=== PATIENT | male | born 1950 | race Caucasian/White ===

== ENCOUNTER 2017-07-09 10:41 | Emergency (ER) | payer MEDICARE, BC ==
[~2017-07-09] VITALS: Ht 182.9 cm; Wt 96.5 kg
[~2017-07-09 10:41] MED LIST: ACCU CHEK AVIVA XX; ALEVE220 M1 PO; AMLOD/BENAZP1 CA5 PO; ASPIRIN LOW DOS81 M1 PO; ASPIRIN LOW DOS81 M2 PO; AUGMENTIN875TAB PO; AVELOX400 MG PO; BABY ASPIRIN81 MG OR; BAYER ASA325 MG PO; CARDURA1 MG; CARDURA1 MG PO; CARVEDILOL3.125 MG PO; CIPRO XR500 M2 PO; CIPRO XR500 MG PO; COREG3.125 MG PO; DIAZEPAM10 MG PO; DILAUDID 2MG2 MG/TA1 PO; DOXAZOSIN1 M1 OR; DOXAZOSIN2 M1 PO; FLOMAX0.4 M1 PO; GLIPIZIDE ER10 M1; GLIPIZIDE10 M1 PO; GLIPIZIDE10 M2 PO; JANUVIA50 MG PO; LIPITOR10 MG OR; LIPITOR10 MG PO; LIPITOR20 MG PO; LOTREL1 CA4 OR; LOTREL1 CA4 PO; METFORMIN1000 MG OR; METFORMIN1000 MG PO; PERCOCET 5/325M1 TAB PO; PLAVIX75 MG PO; PROAIR HFA IN; TUSSIONEX1 ML OR; VIAGRA100 MG PO; ZOSTAVAX IM
[2017-07-09] MEDS ORDERED: TRESIBA FL200 UNIT/M SC (11:36)
[2017-07-09] MEDS ORDERED: MARINOL5 MG PO (11:38)
[2017-07-09 11:58] LABS: HEMATOCRIT 35.4 % (39.0-50.0); IMMATURE GRANULOCYTES 0.5 % (0.0-1.0); MEAN CELL VOLUME 94.9 fL CALC (80.0-100.0); MEAN CORPUSCULAR HGB 29.5 pG CALC (26.0-32.0); MEAN CORPUSCULAR HGB CONC 31.1 g/L CALC (32.0-36.0); NEUT# 3.84 thou/uL (1.82-7.42); RED BLOOD COUNT 3.73 mill/uL (4.70-6.10); RED CELL DISTRI WIDTH 17.3 % (11.5-15.5)
[2017-07-09 12:16] LABS: ANION GAP 16 (6-22 (CALC)); BUN 15 mg/dL (8-23); BUN/CREATININE RATIO 15 (12-20 (CALC)); CARBON DIOXIDE 29 mmol/l (22-30); CHLORIDE 103 mmol/l (95-108); GFR > 60 ML/MIN (>=60 (CALC)); GFR FOR AFR.AMER. > 60 ML/MIN (>=60 (CALC)); POTASSIUM 4.5 mmol/l (3.5-5.1); SODIUM 144 mmol/l (137-146)
[2017-07-09 12:42] LABS: INFLUENZA A NONE DETECTED (NONE DETECT); INFLUENZA B NONE DETECTED (NONE DETECT)
[2017-07-09] MEDS ORDERED: CHERATUSSIN PO (13:27)
[2017-07-09] MEDS ORDERED: MECLIZINE25 M1 PO (13:42)
[2017-07-09 13:50] VITALS: BP 172/74
== END 2017-07-09 13:52 | disposition home or self-care (01) ==
LOC: ED 10:41
PROVIDERS: Family Medicine
DX: R05 Cough (principal); R42 Dizziness and giddiness; I10 Essential (primary) hypertension; J44.9 Chronic obstructive pulmonary disease, unspecified; E11.9 Type 2 diabetes mellitus without complications; E78.5 Hyperlipidemia, unspecified; F17.210 Nicotine dependence, cigarettes, uncomplicated; Z85.118 Personal history of other malignant neoplasm of bronchus and lung; Z79.4 Long term (current) use of insulin

== ENCOUNTER 2018-03-22 11:25 | Emergency (ER) | payer MEDICARE, BC ==
[~2018-03-22] VITALS: Ht 182.9 cm; Wt 150.0 kg
[~2018-03-22 11:25] MED LIST changes: +CHERATUSSIN PO; +MARINOL5 MG PO; +MECLIZINE25 M1 PO; +TRESIBA FL200 UNIT/M SC
[2018-03-22] MEDS ORDERED: MORPHINE PO (11:45)
[2018-03-22 12:42] VITALS: BP 113/77
== END 2018-03-22 12:44 | disposition home or self-care (01) ==
LOC: ED 11:25
PROC: 0HQDXZZ Repair Right Lower Arm Skin, External Approach (ICD-10-PCS; principal; 2018-03-22)
DX: S51.011A Laceration without foreign body of right elbow, initial encounter (principal); S82.001A Unspecified fracture of right patella, initial encounter for closed fracture; I10 Essential (primary) hypertension; J44.9 Chronic obstructive pulmonary disease, unspecified; E11.9 Type 2 diabetes mellitus without complications; E78.5 Hyperlipidemia, unspecified; F17.200 Nicotine dependence, unspecified, uncomplicated; W18.39XA Other fall on same level, initial encounter; Y93.89 Activity, other specified; Y92.009 Unspecified place in unspecified non-institutional (private) residence as the place of occurrence of the external cause; Z85.118 Personal history of other malignant neoplasm of bronchus and lung